=== PATIENT | female | born 1995 | race Caucasian/White ===

== ENCOUNTER → 2023-10-17 | Outpatient (CLI) | payer OTHER ==
--- NOTE | 2023-10-18 11:21 | MR ---
EXAMINATION TYPE: MR brain wo/w con DATE OF EXAM: 10/17/2023 8:39 PM CLINICAL INDICATION:Female, 28 years old with history of H53.8 OTHER VISUAL DISTURBANCES; PHH, Dizzin ess, blurry vision, muscle weakness, headaches COMPARISON: None TECHNIQUE: Multi planar, multi sequence imaging was performed through the brain including: T1, T2, In version recovery, susceptibility weighted imaging and gradient echo imaging and Diffusion weighted im aging. The patient was then given intravenous contrast and multi planar, T1 fat-saturation images wer e obtained. IV Contrast: 9 cc Gadavist FINDINGS: The copeland-white junctions, ventricular system, basal cisterns appear unremarkable. Diffusion-weighted imaging shows no evidence of restricted diffusion to suggest acute/subacute infarct. Intracranial ar terial flow voids are maintained. Midline structures show no abnormality. Single focus of white matte r changes in the right frontal lobe series 601 image 24... The susceptibility weighted images do not reveal any evidence for micro-hemorrhage. After administration of gadolinium, no abnormal enhancement is seen. The bone marrow signal is within normal limits. Paranasal sinuses and mastoid air cells: No significant paranasal sinus disease. Visualized orbits: Orbital contents are intact. IMPRESSION: 1. No evidence of intracranial mass, acute/subacute infarct, or abnormal enhancement. 2. Single focus of nonspecific white matter changes which could related represent demyelination versu s sequela of migraines in appropriate clinical setting.
== END | disposition home or self-care (01) ==
LOC: RADMRIMAIN 18:57
PROVIDERS: ATTEND Family Medicine
DX: M62.81 Muscle weakness (generalized) (principal); R51.9 Headache, unspecified; H53.8 Other visual disturbances
CPT/HCPCS: 70553; A9585